=== PATIENT | female | born 1965 | race Caucasian/White ===

== ENCOUNTER 2018-05-12 05:50 | Emergency (ER) | payer MEDICAID ==
--- NOTE | 2018-05-12 05:52 | EDM.PDOC ---
ED HPI GENERAL MEDICAL PROBLEM - General Chief Complaint: Upper Extremity Injury/Pain Stated Complaint: RIGHT ARM PAIN Time Seen by Provider: 05/12/18 05:51 Source of Information: Reports: Patient History Limitations: Reports: No Limitations - History of Present Illness INITIAL COMMENTS - FREE TEXT/NARRATIVE: HISTORY AND PHYSICAL: History of present illness: 53-year-old female presenting to emergency department with chief complaint of right shoulder pain starting 3 weeks ago. Patient states that 3 weeks ago she tripped going down some stairs and caught herself with an outstretched right arm on the railing. She did not fall or hit her head but had immediate anterior shoulder pain. She did go to [facility] and they stated she had a strain of her shoulder. No imaging was done. She was given a anti-inflammatory but states that it caused her to break out in hives. She has been taking Advil and Tylenol since for pain relief. States that today a coworker startled her and she jumped causing exertion on her right shoulder which exacerbated the pain. Currently pain is 10 out of 10 and in the right anterior shoulder. States that there is some radiation of pain into her right lower arm. She denies any loss of sensation, range of motion, or strength. States that the pain is just in the anterior shoulder but is able to move her arm with full range of motion. She has no previous history of injury to the shoulder. She currently denies any chest pain, palpitations, shortness of breath , syncopal episodes, or focal neurologic deficits. On exam patient has full range of motion and there is no decrease in muscle strength. He is tender to palpation in the anterior shoulder. Neurovascular is completely intact. [place]'s test negative. Review of systems: As per history of present illness and below otherwise all systems reviewed and negative. Past medical history: As per history of present illness and as reviewed below otherwise noncontributory. Surgical history: As per history of present illness and as reviewed below otherwise noncontributory. Social history: No reported history of drug or alcohol abuse. Family history: As per history of present illness and as reviewed below otherwise noncontributory. Physical exam: HEENT: Atraumatic, normocephalic, pupils reactive, negative for conjunctival pallor or scleral icterus, mucous membranes moist, throat clear, neck supple, nontender, trachea midline. Lungs: Clear to auscultation, breath sounds equal bilaterally, chest nontender. Heart: S1S2, regular, negative for clicks, rubs, or JVD. Abdomen: Soft, nondistended, nontender. Negative for masses or hepatosplenomegaly. Negative for costovertebral tenderness. Pelvis: Stable nontender. Genitourinary: Deferred. Rectal: Deferred. Extremities: See above anterior shoulder pain Atraumatic, negative for cords or calf pain. Neurovascular unremarkable. Neuro: Awake, alert, oriented. Cranial nerves II through XII unremarkable. Cerebellum unremarkable. Motor and sensory unremarkable throughout. Exam nonfocal. Diagnostics: Right shoulder x-ray Therapeutics: Toradol 60 mg IM 1 Impression: Right shoulder pain and numbness Right shoulder strain Plan: Right shoulder x-ray was unremarkable. Patient has had symptoms on and off for the past 3 weeks. She has done some physical therapy already. I suggested that the patient does need to see a primary care provider as well as most likely an orthopedic surgeon to get further studies such as an MRI for further evaluation. She agreed with this. I discharged her with numbers for both and we did fax this to the orthopedic surgeon to follow-up. Patient was given a perscription for meloxicam 7.5 g by mouth daily 10 and instructed return to emergency department if any new or worsening symptoms. Definitive disposition and diagnosis as appropriate pending reevaluation and review of above. R arm/Shoulder Pain Score (Numeric/FACES): 9 - Related Data Allergies Allergy/AdvReac Type Severity Reaction Status Date / Time No Known Allergies Allergy Verified 05/12/18 06:05 Home Meds: Home Meds . [No Known Home Meds] 05/12/18 [History] Review of Systems - Review of Systems Review Of Systems: ROS reveals no pertinent complaints other than HPI. ED EXAM, GENERAL - Physical Exam Exam: See Below Course - Vital Signs Last Recorded V/S: Last Vital Signs Temp 98.1 F 05/12/18 06:03 Pulse 106 H 05/12/18 06:03 Resp 16 05/12/18 06:03 BP 134/86 05/12/18 06:03 Pulse Ox 95 05/12/18 06:03 - Orders/Labs/Meds Orders: Active Orders 24 hr Category Date Time Status Shoulder Comp Rt [CR] Stat Exams 05/12/18 06:01 Taken Meds: Medications Discontinued Medications Generic Name Dose Route Start Last Admin Trade Name Anita PRN Reason Stop Dose Admin Ketorolac Tromethamine 60 mg 05/12/18 06:06 05/12/18 06:19 Toradol IM 05/12/18 06:07 60 mg ONETIME ONE Administration Departure - Departure Time of Disposition: 06:48 Disposition: Home, Self-Care 01 Condition: Good Clinical Impression: Right shoulder pain Qualifiers: Chronicity: acute Qualified Code(s): M25.511 - Pain in right shoulder Right shoulder strain Qualifiers: Encounter type: initial encounter Qualified Code(s): S46.911A - Strain of unspecified muscle, fascia and tendon at shoulder and upper arm level, right arm , initial encounter - Discharge Information Referrals: PCP,None [Primary Care Provider] - Forms: ED Department Discharge Additional Instructions: My general discharge The following information is given to patients seen in the emergency department who are being discharged to home. This information is to outline your options for follow-up care. We provide all patients seen in our emergency department with a follow-up referral. The need for follow-up, as well as the timing and circumstances, are variable depending upon the specifics of your emergency department visit. If you don't have a primary care physician on staff, we will provide you with a referral. We always advise you to contact your personal physician following an emergency department visit to inform them of the circumstance of the visit and for follow-up with them and/or the need for any referrals to a consulting specialist. The emergency department will also refer you to a specialist when appropriate. This referral assures that you have the opportunity for follow-up care with a specialist. All of these measure are taken in an effort to provide you with optimal care, which includes your follow-up. Under all circumstances we always encourage you to contact your private physician who remains a resource for coordinating your care. When calling for follow-up care, please make the office aware that this follow-up is from your recent emergency room visit. If for any reason you are refused follow-up, please contact the [facility] Emergency Department at and asked to speak to the emergency department charge nurse. [facility] Primary Care [address] [place] [id number] [facility] Specialty Care - Orthopedic Clinic Professional Building [address] [place] [address], [address] [place] [address] Please call primary care provider as well as orthopedic surgeon numbers above. Be sure to tell them that you were seen in the emergency [facility] and they wish you be followed up with as soon as possible. Take medications as prescribed. Use ice 15 minutes on 15 minutes off for swelling. Return to emergency department if any new or worsening symptoms. - My Orders Last 24 Hours: My Active Orders 05/12/18 06:01 Shoulder Comp Rt [CR] Stat - Assessment/Plan Last 24 Hours: My Active Orders 05/12/18 06:01 Shoulder Comp Rt [CR] Stat
[2018-05-12] MEDS ORDERED: Ketorolac 60 MG/2 ML SDV IM ONE (06:06)
--- NOTE | 2018-05-12 15:33 | CR ---
EXAM DATE: 05/12/18 PATIENT'S AGE: 53 Patient: MARY LEVY Facility: [place], [place] Site . Site : 1965 Study: XRay Shoulder Right [id number]/27/2018 6:23:58 AM Ordering Physician: Reji Myers Final Report: Patient fell a few weeks ago; pain left shoulder. TECHNIQUE: Three view study left shoulder. FINDINGS: No evidence of fracture or dislocation. No bone or soft tissue abnormalities. IMPRESSION: Negative radiographic examination of the left shoulder. Dictated by Lake Buen[place]ro MD @ May 12 2018 6:32AM (Electronic Signature) Report Signed by Proxy. RUBINA
== END 2018-05-12 07:01 | disposition home or self-care (01) ==
LOC: MW.ED 05:50
DX: S46.911A Strain of unspecified muscle, fascia and tendon at shoulder and upper arm level, right arm, initial encounter (principal); X50.9XXA Other and unspecified overexertion or strenuous movements or postures, initial encounter; Y93.39 Activity, other involving climbing, rappelling and jumping off
CPT/HCPCS: 73030; 96372; 99283; J1885